=== PATIENT | female | born 2000 | race Two or more races ===

== ENCOUNTER 2020-06-21 17:59 | Emergency (ER) | payer MEDICAID, OTHER ==
[~2020-06-21] VITALS: Ht 162.6 cm; Wt 62.6 kg
[2020-06-21 22:44] VITALS: BP 119/60
== END 2020-06-21 23:18 | disposition home or self-care (01) ==
LOC: ER 18:02
DX: T81.31XA Disruption of external operation (surgical) wound, not elsewhere classified, initial encounter (principal); L03.221 Cellulitis of neck
CPT/HCPCS: 70490